=== PATIENT | female | born 1965 | race Caucasian/White ===

== ENCOUNTER 2022-10-15 20:04 | Emergency (ER) | payer MEDICAID ==
[~2022-10-15] VITALS: Ht 167.6 cm; Wt 82.0 kg
[2022-10-15 20:14] VITALS: BP 149/98
[2022-10-15] MEDS ORDERED: SODIUM CHLORIDE 0.9% 500 ML IV ONE (22:15)
[2022-10-15] MEDS ORDERED: FAMOTIDINE 20MG/2ML VIAL IV ONE (22:15)
== END 2022-10-15 22:20 | disposition left against medical advice (07) ==
LOC: ER 20:04
DX: Z53.21 Procedure and treatment not carried out due to patient leaving prior to being seen by health care provider (principal); R10.13 Epigastric pain; R00.0 Tachycardia, unspecified
CPT/HCPCS: 93005; J7040